=== PATIENT | female | born 1975 | race African-American/Black ===

== ENCOUNTER → 2021-04-16 | Outpatient (CLI) | payer OTHER ==
--- NOTE | 2021-04-16 14:23 | CARD ---
MR#: [id number] Date of Study: 04/16/2021 Ordering Physician: FAVIOLA PATEL, Referring Physician: FAVIOLA PATEL, Tech: Thong Self [facility] APPROVED REPORT EXAM: Two-dimensional and M-mode echocardiogram with Doppler and color Doppler. INDICATION Hypertension/HCVD RISK FACTORS Hypertension Obesity 2D DIMENSIONS Left Atrium(2D)3.9 (1.6-4.0cm)IVSd1.1 (0.7-1.1cm) Aortic Root(2D)3.3 (2.0-3.7cm)LVDd5.2 (3.9-5.9cm) LVOT Diameter2.2 (1.8-2.4cm)PWd1.1 (0.7-1.1cm) LVDs2.6 (2.5-4.0cm)FS (%) 50.1 % SV106.7 mlLVEF(%)81.1 (>50%) Aortic Valve AoV Peak Dell.147.9cm/sAoV VTI29.4cm AO Peak GR.8.7mmHgLVOT Peak Dell.132.8cm/s LVOT VTI 28.16cmAO Mean GR.5mmHg SHIMON (VMAX)2.07qq5PUY (VTI)3.76cm2 AI P 1/2 Ysus007mb Mitral Valve MV E Mdytzrlg81.2cm/sMV DECEL HMWZ945iw MV A Nwmqrvji40.0cm/sMV IPE56pk E/A Ratio0.8MVA (PHT)3.85cm2 TDI E/Lateral E'6.2E/Medial E'9.6 Pulmonary Valve PV Peak Ftxcubkw11.3cm/sPV Peak Grad.3mmHg Tricuspid Valve TR P. Wertfdxd861mm/sTR Peak Gr.20mmHg Pulmonary Vein S1 Idaxiueo00.6cm/sD2 Izslrgpa98.7cm/s LEFT VENTRICLE The left ventricle is normal size. There is normal left ventricular wall thickness. The left ventricu lar systolic function is normal. The ejection fraction is 65-70%. There is normal LV segmental wall m otion. Transmitral Doppler flow pattern is Grade I-abnormal relaxation pattern. No left ventricle thr ombus noted on this study. There is no ventricular septal defect visualized. There is no left ventric ular aneurysm. There is no mass noted in the left ventricle. RIGHT VENTRICLE The right ventricle is normal size. There is normal right ventricular wall thickness. The right ventr icular systolic function is normal. ATRIA The left atrium is moderately dilated. The right atrium size is normal. Mildly anuerysmal atrial sept um. AORTIC VALVE The aortic valve is mildly sclerotic. Doppler and Color Flow revealed mild aortic regurgitation. Ther e is no significant aortic valvular stenosis. There is no aortic valvular vegetation. MITRAL VALVE The mitral valve is normal in structure and function. There is no evidence of mitral valve prolapse. There is no mitral valve stenosis. Doppler and Color-flow revealed trace mitral regurgitation. TRICUSPID VALVE The tricuspid valve is normal in structure and function. Doppler and Color Flow revealed mild tricusp id regurgitation. There is no tricuspid valve prolapse or vegetation. There is no tricuspid valve francisco javier nosis. PULMONIC VALVE The pulmonary valve is normal in structure and function. Doppler and Color Flow revealed no pulmonic valvular regurgitation. There is no pulmonic valvular stenosis. GREAT VESSELS The aortic root is normal in size. The ascending aorta is normal in size. The pulmonary artery is nor mal. The IVC is normal in size and collapses >50% with inspiration. PERICARDIAL EFFUSION There is no pleural effusion. There is no evidence of significant pericardial effusion. Critical Notification Critical Value: No <Conclusion> The left ventricular systolic function is normal. The ejection fraction is 65-70%. There is normal LV segmental wall motion. Transmitral Doppler flow pattern is Grade I-abnormal relaxation pattern. Mild aortic regurgitation. Trace mitral regurgitation. Mild tricuspid regurgitation. There is no evidence of significant pericardial effusion. Signed by : Parker Price, Electronically Approved : 04/16/2021 14:23:00
== END ==
LOC: ECHO 12:51
PROVIDERS: ATTEND Internal Medicine Cardiovascular Disease
DX: I08.3 Combined rheumatic disorders of mitral, aortic and tricuspid valves (principal); I10 Essential (primary) hypertension
CPT/HCPCS: 93306

== ENCOUNTER → 2021-05-15 | Day surgery (SDC) | payer OTHER ==
[~2021-05-15] VITALS: Ht 165.1 cm; Wt 110.0 kg
[~2021-05-15] MED LIST: AMLO-186 PO; HYDR12.58 PO; LIDOCAINE 1%/EPI 1:100,000 20 ML VIAL. INJ ONE; LIDOCAINE 1%/EPI 1:100,000 20 ML VIAL. ONE; METF100010 PO; METO-239 PO; METO-247 PO; TELM80TA PO
[2021-05-15 11:12] VITALS: BP 144/91
--- NOTE | 2021-05-15 13:38 | PDOC4 ---
Operative Note Operative Note Date: May 15 2021 at noon Preoperative diagnosis: Skin lesion of the left breast Postoperative diagnosis: Same Procedure: Excision of skin lesion Surgeon: Leandro Specimen skin lesion left breast Dictation: Patient is a 45-year-old female has a skin lesion on her left breast and the nipple areolar complex. Procedure of excision was explained to the patient detail risk-benefit were also discussed including bleeding infection. Patient gave both verbal and written consent to have the procedure performed. Patient was taken to the minors room placed in the supine position the left breast was prepped and draped usual sterile fashion using ChloraPrep. Area around the mass was injected with 1% lidocaine with epinephrine. Once this anesthetized an elliptical incision was made with fifteen blade scalpel size the masses 2 cm in diameter a half a centimeter in margins was taken once the lesion was fully excised the skin was reapproximated with 4 subcuticular Monocryl Mastisol Steri-Strips and island dressing were applied. Patient tolerated procedure well was discharged home in stable condition all sponge instrument needle counts listed as correct estimated blood loss less than 5 mL SAURAV PARDO MD May 15, 2021 13:37
--- NOTE | 2021-05-15 13:39 | DISCH ---
DISCHARGE INSTRUCTIONS Condition on Discharge Condition on Discharge: Stable Activity After Discharge Activity Instructions for Disc: Resume previous activity Diet after Discharge Diet after Discharge: Regular Wound Incision Care Other wound/incision instructi: Mary Jo shower in 24 hours Contacting the DRNicol after DC Call your doctor for: If your condition worsens Follow-Up Follow up with: Dr. Pardo in 2 weeks SAURAV PARDO MD May 15, 2021 13:39
--- NOTE | 2021-05-16 17:06 | PATHOLOGY ---
[facility] Accession Number: [id number] . 01 Material submitted: . breast - LESION LT BREAST. Modifiers: left . 02 Diagnosis: Skin, left breast lesion, excision: - Pigmented seborrheic keratosis. . ([facility]; 05/16/2021) [facility] 05/16/2021 1138 Local . 02 Comment: There is no evidence of malignancy. . ([facility]:mm; 05/16/2021) . 02 Electronically signed: . Karsten Solomon MD, Pathologist NPI- [id number] . 01 Gross description: . The specimen is submitted in formalin, labeled "Dara Baltazar, lesion left breast". Received is a shave biopsy measuring 2.0 x 1.2 x 0.3 cm in greatest dimensions. The epidermal surface is dark brown and wrinkled in appearance. The surgical margin is inked. The specimen is serially sectioned and entirely submitted in cassette A1. ([facility]; 05/15/2021) NRI/NRI 05/15/2021 1542 Local . 02 Pathologist provided ICD-10: L82.1 . 02 CPT . 917952 Specimen Comment: A courtesy copy of this report has been sent to [phone] Specimen Comment: [id number] Specimen Comment: Report sent to / DR HELLER Performed at: 01 [facility] [address], [place] [id number] MD Marquez Junior MD Phone: [phone] Performed at: 02 [facility] [address] [place], [place] [id number] MD Karsten Solomon MD Phone: [phone]
--- NOTE | 2021-05-22 08:57 | PDOC1 ---
History and Physical Date of Admission Date of Admission DATE: 05/15/21 TIME: 08:54 Identification/Chief Complaint Chief Complaint Skin lesion left breast Source Source: Patient History of Present Illness History of Present Illness 45-year-old female with complaints of a skin lesion on her left breast been present for a number of years getting larger Past Medical History Cardiovascular: No pertinent hx Pulmonary: No pertinent hx GI: No pertinent hx Heme/Onc: No pertinent hx Hepatobiliary: No pertinent hx Psych: No pertinent hx Rheumatologic: No pertinent hx Infectious disease: No pertinent hx Renal/: No pertinent hx Endocrine: No pertinent hx Dermatology: No pertinent hx Past Surgical History Past Surgical History: No pertinent history Family History Family History: No Significant Social History Smoke: No ALCOHOL: none Drugs: None Current Medications Current Medications Current Medications Lidocaine/ Epinephrine (LIDOCAINE 1%-EPI 1:100,000 Multi-Dose) 20 ml STK-MED ONCE .ROUTE ; Start 05/15/21 at 11:03; Stop 05/15/21 at 11:03; Status DC Lidocaine/ Epinephrine (LIDOCAINE 1%-EPI 1:100,000 Multi-Dose) 20 ml STK-MED ONCE INJ Last administered on 05/15/21at 11:32; Start 05/15/21 at 11:32; Stop 05/15/21 at 11:37; Status DC Active Scripts Active Reported Amlodipine Besylate 5 Mg Tablet 5 Mg PO DAILY Hydrochlorothiazide Tablet (Hydrochlorothiazide) 12.5 Mg Tablet 37.5 Mg PO DAILY07 Metformin Hcl Er (Metformin Hcl) 1,000 Mg Tab.er.24 1,000 Mg PO DAILYWBKFT Metoprolol Succinate ( Xl ) (Metoprolol Succinate) 100 Mg Tab.er.24h 1 Tab PO HS Metoprolol Succinate ( Xl ) (Metoprolol Succinate) 25 Mg Tab.er.24h 50 Mg PO DAILY07 Micardis (Telmisartan) 80 Mg Tablet 1 Tab PO DAILY Allergies Allergies: Coded Allergies: No Known Drug Allergies (Unverified , 05/15/21) ROS Breast: Other (Skin lesion) Physical Exam General: Alert, Oriented X3, Cooperative, No acute distress HEENT: Atraumatic, EOMI Lungs: Clear to auscultation, Normal air movement Heart: RRR, no murmurs Breasts: Lt breast nml w/o mass (1 cm hyperpigmented skin lesion in the nipple area of the left breast) Abdomen: Normal bowel sounds, Soft, No tenderness Rectal Exam: not examined Extremities: No edema Skin: No significant lesion Neuro: Normal speech Psych/Mental Status: Mental status NL Vitals Vitals Vital Signs Date Time Temp Pulse Resp B/P (MAP) Pulse Ox O2 Delivery O2 Flow Rate FiO2 05/15/21 11:12 97.8 67 20 98 97.8 VTE Prophylaxis Ordered VTE Prophylaxis Devices: No VTE Pharmacological Prophylaxi: No Assessment/Plan Assessment/Plan Excision of left breast skin lesion Justifications for Admission Other Justification SAURAV PARDO MD May 22, 2021 08:57
== END | disposition home or self-care (01) ==
LOC: SURG 10:41
PROVIDERS: ATTEND Surgery
DX: L82.1 Other seborrheic keratosis (principal); Z79.84 Long term (current) use of oral hypoglycemic drugs; Z79.899 Other long term (current) drug therapy
CPT/HCPCS: 11403; 88305; J3490

== ENCOUNTER → 2021-07-19 | Outpatient (CLI) | payer OTHER ==
[2021-05-15 11:12] VITALS: BP 144/91
[~2021-07-19] MED LIST changes: +LIDOCAINE 1% Multi-Dose 20 ML VIAL. INJ ONE; -LIDOCAINE 1%/EPI 1:100,000 20 ML VIAL. INJ ONE; -LIDOCAINE 1%/EPI 1:100,000 20 ML VIAL. ONE
--- NOTE | 2021-07-20 16:34 | RAD ---
CLINICAL INDICATION: Reason: Left Axilla Node Biopsy for abnormal Axillary Node PRE-PROCEDURAL CONSULTATION: Details of the procedure and possible limitations and complications were discussed with the patient. After addressing her questions and concerns, written informed consent wa s obtained. A time out was then taken to verify patient's name and date of as well as site and laterality. PROCEDURE: The mass at the 3 o'clock position within the left breast was targeted under ultrasound. The skin of the left breast was cleansed and prepped in the typical sterile fashion. 5 cc of 1% lidoc ady was used for local anesthesia. A small skin incision was then made to permit passage of a 14 ga uge spring activated biopsy device. 4 core specimens were obtained. An S clip was then deployed at the biopsy site. Hemostasis was achieved. The abnormal-appearing lymph node in the left axilla was targeted under ultrasound. The skin of the l eft axilla was cleansed and prepped in the typical sterile fashion. 5 cc of 1% lidocaine was used for local anesthesia. A small skin incision was then made to permit passage of a 14 gauge spring activa terry biopsy device. 4 core specimens were obtained. A coil clip was then deployed at the biopsy site. Hemostasis was achieved. The patient tolerated the procedure well with no immediate complications. Post-procedural digital mammographic imaging of the left breast demonstrate the S clip and coil clip in appropriate position. Infiltration in the left axilla likely postprocedural change, possible devel opment of associated hematoma. Patient informed regarding potential signs or symptoms that may indicate need to return to ER/Orderin g physician for further evaluation. Patient informed regarding precautionary measures following biops y. Patient expressed understanding. IMPRESSION: Successful ultrasound guided core needle biopsy of the left breast mass and left axillary lymph node. Pathology is pending. Electronically signed by: Goyo Shepard MD (07/20/2021 4:31 PM) [id number]
--- NOTE | 2021-07-20 18:14 | PATHOLOGY ---
[facility] Accession Number: [id number] . 01 Material submitted: . PART A: breast - LT BREAST MASS 3:00 6 CMFN, 1 CM. Modifiers: left PART B: breast - LEFT AXILLA NODE TISSUE. Modifiers: left . 02 Diagnosis: A. Breast tissue, left breast mass 3:00 6 cm from nipple needle biopsies: - Fibroadenoma. . B. Lymph node, left axillary node needle biopsies: - Reactive changes - negative for malignancy. (JPM:gael; 07/20/2021) S 07/20/2021 1536 Local . 02 Comment: Sections of the left breast mass at 3:00 reveal a fibroadenoma. There is no atypia or evidence of malignancy. . Sections of the left axillary lymph node biopsy reveal segments of lymph node. The rodríguez architecture appears preserved. There are lymphoid follicles within the rodríguez cortex which contain germinal centers. The paracortical areas are populated by small lymphocytes with focal yellow-brown granular pigment laden histiocytes noted. The rodríguez sinuses are preserved and open. There is no evidence of malignancy. (JPM:gael; 07/20/2021) . 02 Electronically signed: . Karsten Solomon MD, Pathologist NPI- [id number] . 01 Gross description: . A. The specimen is received in formalin, labeled "Dara Baltazar, Lt breast mass 300 6cmfn" and consists of 5 phan fatty cylindrical tissues ranging in length from 0.5 cm to 1.8 cm and each averaging 0.2 cm in diameter. The specimen is submitted in toto in A1-A3. The cold ischemic time is 1 minute. The total time in formalin is 8 hours. . B. The specimen is received in formalin, labeled "Delaney Dara, Lt axilla node" and consists of 3 phan cylindrical tissue ranging in length from 0.7 cm to 1.1 cm and each averaging 0.1 cm in diameter. The specimen is submitted in toto in B1-B3.([facility]; 07/19/2021) DKA/DKA 07/19/2021 1720 Local . 02 Pathologist provided ICD-10: D24.2 . 02 CPT . 607167, 185210 Specimen Comment: A courtesy copy of this report has been sent to [phone] Specimen Comment: [id number], Specimen Comment: Report sent to , DR PARDO / DR HELLER Performed at: 01 [facility] [address], [place] [id number] MD Marquez Junior MD Phone: [phone] Performed at: 02 [facility] [address] [place], [place] [id number] MD Karsten Solomon MD Phone: [phone]
== END | disposition home or self-care (01) ==
LOC: US 12:33
PROVIDERS: ATTEND Surgery
DX: N63.21 Unspecified lump in the left breast, upper outer quadrant (principal); D24.2 Benign neoplasm of left breast; R92.8 Other abnormal and inconclusive findings on diagnostic imaging of breast; R59.0 Localized enlarged lymph nodes; Z79.84 Long term (current) use of oral hypoglycemic drugs; Z79.899 Other long term (current) drug therapy; Z98.890 Other specified postprocedural states
CPT/HCPCS: 19083; 38505; 77065; 88184; 88185; 88305; A4648; C1819; J3490; 19084